=== PATIENT | male | born 1955 | race Caucasian/White ===

== ENCOUNTER 2023-11-12 11:22 | Emergency (ER) | payer MEDICARE, OTHER ==
[2023-11-12 11:39] VITALS: BP 166/84; O2SAT 96
--- NOTE | 2023-11-12 12:38 | XRAY Report ---
PROCEDURE: Ankle 3+V RT INDICATIONS: fall, ankle pain TECHNIQUE: 3 views of the ankle were acquired. COMPARISON: None. FINDINGS: Bones: No fractures or dislocations. Corticated ossific densities inferior to the medial malleolus. Ankle mortise is normally aligned on nonweightbearing view. No suspicious bony lesions. Soft tissues: No tibiotalar joint effusion. Achilles tendon appears normal. Small calcification wit hin the Achilles tendon. Tiny plantar calcaneal enthesophyte. IMPRESSION: 1.No acute bony abnormality. If there remains a high clinical concern for fracture, consider cross-se ctional imaging now. If pain persists, consider repeat x-ray in 10-14 days or cross-sectional imaging . 2.Corticated ossific densities inferior to the medial malleolus likely represent sequela of trauma or remote injury. Reviewed by: Jennifer Easley MD on 11/12/2023 12:36 PM PDT Approved by: Jennifer Easley MD on 11/12/2023 12:36 PM PDT Station ID: [id number]
--- NOTE | 2023-11-12 12:58 | ED Physician Documentation ---
PD HPI LOWER EXT INJURY - Stated complaint Stated Complaint: RT FOOT INJ - Chief complaint Chief Complaint: Ext Problem - History obtained from History obtained from: Patient - Additional information Additional information: Patient is a 68-year-old male presenting for evaluation of right ankle pain that started while he was playing pickle ball. Patient reports pain primarily to the posterior aspect of the ankle over the Achilles. Has not recently been on antibiotics.Denies head injury. Does not take a blood thinner. Review of Systems Musculoskeletal: reports: Extremity pain PD PAST MEDICAL HISTORY - Past Medical History Past Medical History: No - Past Surgical History Past Surgical History: No - Allergies Allergies/Adverse Reactions: Allergies Allergy/AdvReac Type Severity Reaction Status Date / Time No Known Drug Allergies Allergy Verified 11/12/23 11:31 - Social History Does the pt smoke?: No Smoking Status: Never smoker - Immunizations Immunizations are current?: Yes PD ED PE NORMAL - General General: Alert and oriented X 3, No acute distress, Well developed/nourished - HEENT HEENT: Atraumatic - Cardiac Cardiac: Strong equal pulses - Respiratory Respiratory: No respiratory distress - Derm Derm: Warm and dry - Extremities Extremities: No deformity, No edema, Other (Tenderness over right Achilles, pain with plantar and dorsiflexion, no palpable defects over Achilles tendon) Results - Vitals Vitals: Vital Signs - 24 hr 11/12/23 11:31 Temperature 36.2 C L Heart Rate 63 Respiratory 16 Rate Blood Pressure 166/84 H O2 Saturation 96 PD Medical Decision Making - ED course Complexity details: reviewed results, d/w patient ED course: Patient is a 68-year-old male presenting for evaluation of injury while playing pickle ball to the right ankle. An x-ray was obtained which I reviewed I see no fracture or dislocation.Patient does have tenderness over the Achilles tendon but there is no palpable defect to suggest a rupture. Patient placed into an Aircast and given crutches and counseled on continued supportive care as well as need for close follow-up if symptoms or not improving. Departure - Departure Disposition: 01 Home, Self Care Clinical Impression: Right ankle injury Condition: Stable Instructions: ED Sprain Ankle Comments: Your x-ray does not show a fracture or dislocation in the ankle. I also do not feel any defect in the Achilles tendon to suggest rupture. Please continue with the Aircast and crutches as needed as long as you are having pain. Continue with an anti-inflammatory such as acetaminophen, ibuprofen, ice and elevation. I would recommend follow-up with your primary care doctor or with an orthopedist in the next week if your symptoms are not improving. Forms: PCP List Discharge Date/Time: 11/12/23 13:43
== END 2023-11-12 13:43 | disposition home or self-care (01) ==
LOC: ED 11:22 → SUPCPDRO 11:22 → ED 13:43
DX: S99.911A Unspecified injury of right ankle, initial encounter (principal); X58.XXXA Exposure to other specified factors, initial encounter; Y93.69 Activity, other involving other sports and athletics played as a team or group
CPT/HCPCS: 99283; 99284